=== PATIENT | female | born 1940 | race Caucasian/White ===

== ENCOUNTER 2016-04-17 15:59 | Emergency (ER) | payer OTHER ==
[2016-04-17] MEDS ORDERED: MORPHINE 4 MG/ML SYR ONE (17:06)
[2016-04-17] MEDS ORDERED: ONDANSETRON 4 MG VIAL ONE (17:07)
== END 2016-04-17 19:26 | disposition home or self-care (01) ==
LOC: ER 15:59
DX: M79.661 Pain in right lower leg (principal); R60.0 Localized edema; Z79.899 Other long term (current) drug therapy
CPT/HCPCS: 36415; 80053; 83880; 85025; 85610; 85730; 93971; 96374; 96375; 99284; J2270; J2405